=== PATIENT | male | born 1930 | race Caucasian/White ===

== ENCOUNTER 2016-10-30 16:52 | Emergency (ER) | payer BC, MEDICARE, OTHER ==
[~2016-10-30] VITALS: Ht 170.2 cm; Wt 91.0 kg
[~2016-10-30 16:52] MED LIST: COUM5TAB PO; SULF-154 PO; TERA5CAP34 PO; VERA240CR PO; WELC625T2 PO
[2016-10-30 16:56] VITALS: BP 163/90; PULSE 66; RESP 17; TEMP 98.6; O2SAT 97
--- NOTE | 2016-10-30 17:11 | PD ---
HPI . Cold Chief Complaint: Cold / Flu Symptoms Time Seen by Provider: 17:03 Travel History International Travel<30 days: No Contact w/Intl Traveler<30days: No Traveled to known affect area: No History of Present Illness HPI Patient presents with cold symptoms that started in the wee hours of the morning this morning. His major symptom is runny nose. He also has a cough. He has not been taking anything for it. Several family members have recently been sick. He denies fever. PFSH Past Medical History Blood Disorders: No Anxiety: No Depression: No Cancer: No Cardiac Catheterization: Yes Cardiovascular Problems: Yes High Cholesterol: Yes Chest Pain: Yes Coronary Artery Disease: Yes GERD: Yes Genitourinary: No Immune Disorder: No Implanted Vascular Access Dvce: No Musculoskeletal: No Neurologic: No Psychiatric: No Reproductive: No Respiratory: No Myocardial Infarction: Yes Past Surgical History Prostatectomy: Yes (BX 02/07/07) Thoracic Surgery: Yes (esphogeal polyps) Other Surgery: Yes Social History Alcohol Use: Yes (ONCE A DAY MIX DRINK/SHOTS) Tobacco Use: No Substance Use: No Allergies-Medications (Allergen,Severity, Reaction): Coded Allergies: Penicillin (Verified Allergy, Intermediate, PT DENIES, 10/30/16) Reported Meds & Prescriptions Reported Meds & Active Scripts Active Septra Ds (Trimethoprim/Sulfamethoxazole) Tab 1 Tab PO BID 10 Days Reported Coumadin (Warfarin Sodium) 5 Mg Tab 5 Mg PO DAILY Hytrin (Terazosin HCl) 5 Mg Cap 5 Mg PO HS Isoptin Sr (Verapamil HCl) 240 Mg Tabcr 240 Mg PO DAILY Welchol (Colesevelam HCl) 625 Mg Tab 625 Mg PO TID Review of Systems Except as stated in HPI: all other systems reviewed are Neg General / Constitutional: No: Fever, Chills Eyes: No: Drainage, Redness HENT: Positive: Rhinitis, Rhinorrhea, Congestion Respiratory: Positive: Cough, No: Shortness of Breath, Wheezing Gastrointestinal: No: Nausea, Vomiting Physical Exam Narrative GENERAL: This is a pleasant older gentleman here with his . He is not in any acute distress. SKIN: Warm and dry. HEAD: Atraumatic. Normocephalic. EYES: Pupils equal and round. ENT: No nasal bleeding or discharge. Mucous membranes pink and moist. Oropharynx clear. NECK: Trachea midline. Neck is supple with no cervical lymphadenopathy. CARDIOVASCULAR: Regular rate and rhythm. Heart sounds are normal. RESPIRATORY: No accessory muscle use. Lungs are clear with full air movement throughout. GASTROINTESTINAL: Abdomen soft, non-tender, nondistended. MUSCULOSKELETAL: No obvious deformities. No edema. NEUROLOGICAL: Awake and alert. No obvious cranial nerve deficits. Motor grossly within normal limits. Normal speech. PSYCHIATRIC: Appropriate mood and affect; insight and judgment normal. Data Data Last Documented VS Vital Signs Date Time Temp Pulse Resp B/P Pulse Ox O2 Delivery O2 Flow Rate FiO2 10/30/16 16:56 98.6 66 17 163/90 97 MDM Medical Decision Making Medical Screen Exam Complete: Yes Emergency Medical Condition: Yes Differential Diagnosis Differential diagnosis includes but is not limited to influenza, upper respiratory infection, bronchitis, pneumonia Narrative Course This patient presents for evaluation and treatment of a cold. He does not appear ill. I have instructed he and his and the use of a NetiPot and an oral antihistamine. Diagnosis Primary Impression: Cold Patient Instructions: Cold Symptoms (ED), General Instructions Additional Instructions: I recommend the use of a Neti Pot. You may use a nasal spray such as Afrin for up to 3 days as needed for nasal congestion. You may take an [id number] antihistamine such as Zyrtec, Cinthya or Claritin as needed for runny secretions. You may take pseudoephedrine as needed for congestion. You will need to sign for this at the pharmacy. You may take plain Mucinex, 1200 mg twice a day as needed for thick secretions. You may take a cough syrup such as Delsym as needed for cough. Motrin as needed for fever and body aches. Throat lozenges/sprays as needed for sore throat. Warm salt water gargles for sore throat. Hot tea with lemon and honey also helps soothe a sore throat. Disposition: 01 DISCHARGE HOME Condition: Stable Amaya Maier MD Oct 30, 2016 17:11
[2016-10-30] MEDS ORDERED: CARV3.12 PO (17:13)
[2016-10-30] MEDS ORDERED: VERA120T3 PO (17:13)
[2016-10-30] MEDS ORDERED: TERA5CAP3 PO (17:13)
[2016-10-30] MEDS ORDERED: ROSU1TAB10 PO (17:13)
[2016-10-30] MEDS ORDERED: APIX5TAB PO (17:13)
[2016-10-30] MEDS ORDERED: LISI-519 PO (17:13)
== END 2016-10-30 17:26 | disposition home or self-care (01) ==
LOC: PHEFT 16:52
DX: J00 Acute nasopharyngitis [common cold] (principal); E78.00 Pure hypercholesterolemia, unspecified; I25.10 Atherosclerotic heart disease of native coronary artery without angina pectoris; I25.2 Old myocardial infarction
CPT/HCPCS: 99283